=== PATIENT | female | born 1945 | race Caucasian/White ===

== ENCOUNTER 2021-05-28 17:11 | Emergency (ER) | payer MEDICARE, SELFPAY ==
[2021-05-28 17:13] VITALS: BP 141/77; PULSE 74; RESP 14; TEMP 36.6; O2SAT 95; BMI 27.0
--- NOTE | 2021-05-28 17:20 | CT_ITS ---
STUDY: CT CERVICAL SPINE WITHOUT CONTRAST REASON FOR EXAM: Female, 76 years old. Trauma fall, hit head and laceration to right face RADIATION DOSAGE (If Supplied By Facility): CTDIvol = ( 18.26 ) mGy, DLP = ( 459.52 ) mGycm TECHNIQUE: High resolution transaxial imaging was performed without contrast material. Sagittal and coronal images were reconstructed. Individualized dose optimization techniques were used for this CT. COMPARISON: None FINDINGS: Craniocervical junction and cervical spine are intact and aligned. Mineralization is normal. Paraspinous soft tissues are normal. Spinal canal is patent at all levels. Neural foramina are patent. CT/Spine Cervical without Contras IMPRESSION: 1. No acute osseous injury. Electronically Signed: Jade Truong MD at 18:06 EDT Tel , Service support ,
--- NOTE | 2021-05-28 17:20 | CT_ITS ---
STUDY: CT BRAIN WITHOUT CONTRAST REASON FOR EXAM: Female, 76 years old. Trauma fall laceration RADIATION DOSAGE (If Supplied By Facility): CTDIvol = ( 44.99 ) mGy, DLP = ( 812.98 ) mGycm TECHNIQUE: Transaxial CT imaging of the brain was performed without administration of intravenous contrast material. Individualized dose optimization techniques were used for this CT. COMPARISON: No relevant priors. FINDINGS: Brain parenchyma is without focal lesions, mass effect, acute intracranial hemorrhage, extra parenchymal fluid collections, hydrocephalus or herniation. The skull is intact. CT/Brain/Head without Contrast IMPRESSION: 1. Normal CT brain. Electronically Signed: Jade Truong MD at 18:00 EDT Tel , Service support ,
--- NOTE | 2021-05-28 17:22 | EDS_ITS ---
HPI History of Present Illness Chief Complaint: Fall Detail of Chief Complaint: Fall with a head injury Informant: patient Narrative Narrative: Patient presents to the emergency department after sustaining a fall this afternoon. Patient presents via EMS. Patient has history of Parkinson's and hypertension. Patient's states that she tripped over the concrete riser at their home and fell and struck her head on the ground. No loss of consciousness. She also complains of some pain in her low back from a fall 2 days ago. Patient not on blood thinners. She denies pain radiating down the legs. She denies recent illness. Patient states that she had 2 small glasses of wine today. [facility] Medical History (Updated 05/28/21 @ 18:[address] Steffany Beauchamp, ) Hypertension Parkinson's disease Allergy/AdvReac Type Severity Reaction Status Date / Time No Known Allergies Allergy Verified 05/28/21 17:12 Social History Smoking Status: Never smoker ROS ROS ED Constitutional Constitutional ED: Reports systems reviewed and no addt'l complaints, except as documented; Denies body ache(s), change in weight or chills Eyes Eyes: Denies acute decrease in peripheral vision, change in vision, double vision or loss of vision ENT ENT ED: Reports none and other Details: Right scalp laceration ; Denies ear pain, lip swelling, loss taste/smell, neck pain, otalgia or sore throat Cardiovascular Cardiovascular: Reports none; Denies abdominal pain, chest pain with activity, leg edema, lightheadedness, palpitations, rapid heart rate or syncope Respiratory/Chest Respiratory/Chest: Reports none; Denies change in mental status, dry cough, dyspnea, hemoptysis, shortness of breath at rest or shortness of breath with exertion Gastrointestinal Gastrointestinal: Reports none; Denies abdominal pain, change in stool character, diarrhea, hematemesis, hematochezia, melena, rectal bleeding or vomiting Genitourinary Genitourinary ED: Reports none; Denies abdominal discomfort, anuria, dysuria, genital pain or polyuria Musculoskeletal Musculoskeletal: Reports none and back pain; Denies arthralgias, difficulty walking, extremity pain, muscle weakness or myalgias Integumentary Reports none; Denies abscess or rash Neurologic Neurologic: Reports none and headache(s); Denies abnormal gait, confusion, focal weakness, frequent falls, loss of vision, numbness, paresthesias, radicular pain, vertigo or weakness Psychiatric Psychiatric: Reports systems reviewed and no addt'l complaints, except as documented and none; Denies behavioral changes, confusion, difficulty concentrating, hallucinations, suicidal ideation, tactile hallucinations or visual hallucinations Endocrine Endocrinology: Denies none, cold intolerance, excessive sweating, fatigue or heat intolerance Hematologic/Lymphatic Hematologic/Lymphatic: Reports none; Denies anemia, easy bleeding or easy bruising Allergic/Immunologic Allergic/Immunologic ED: Denies as per HPI, none, lip swelling, mouth swelling, throat swelling, tongue swelling or hives EXAM Physical Exam Const Vital Signs: 05/28/21 17:13 05/28/21 17:15 Temperature 97.8 F Temperature Source Temporal Pulse Rate 74 Respiratory Rate 14 Respiratory Effort Normal Non-Labored Blood Pressure 141/77 H Blood Pressure Mean 98 Pulse Ox 95 Oxygen Delivery Method Room Air Room Air Positive well nourished and well developed General Appearance ED: well developed and NAD HEENT Reports TM's clear and moist mucous membranes HEENT Narrative: Patient has a laceration to the right parietal scalp normocephalic and atraumatic; Negative for trauma or tenderness Tympanic Membrane ED: Yes TM's clear Eyes PERRL and EOMs intact bilaterally General Eye ED: Negative for pale conjunctiva or scleral icterus Neck no lymphadenopathy, supple and no JVD Neck Narrative: Mild diffuse tenderness over the C-spine. No bony step-offs. General: tenderness Chest Wall inspection of chest normal and palpation of chest normal Chest: Negative for tenderness Resp normal respiratory effort and clear to auscultation bilaterally Effort and Inspection: Negative for respiratory distress or pain with movement Auscultation: Negative for rhonchi, wheezes or diminished lung sounds Cardio regular rate, regular rhythm, S1 normal heart sound, S2 normal heart sound and no murmurs Peripheral Pulses: pulses 2+ throughout GI normal to inspection, nondistended, normoactive bowel sounds, soft to palpation, non-tender, non-distended and no masses Back/Spine no CVA tenderness and no thoracic nor lumbar tenderness Extremity normal to inspection General Extremety ED: Negative for edema General Extremity: Negative for edema Neuro oriented x3, CN's II-XII intact bilaterally, no sensory deficits noted and gait normal Sensorium / Orientation: awake, alert, oriented to person, oriented to place and oriented to time Motor Exam: strength 5/5 throughout and strength abnormal Psych mental status grossly normal Skin no rashes or lesions noted and no wounds PROC Procedures Lacerations Scalp laceration: Length: 1.18 in Depth: Sub Q Shape: Linear Prep: Sterile Conditions Laceration repair: Irrigated, Lidocaine with epi and Local Irrigated (ml): 50 Number of Sutures/[place]: 3 Suture Information: Ethilon and Simple MDM MDM MDM Narrative Medical decision making narrative: CT scan of brain and C-spine obtained were unremarkable. X-ray of the lumbar spine were unremarkable. Patient had her scalp laceration repaired in department. She is advised to follow-up with primary care physician in 10 days for suture removal. She is to return if worsening pain, redness, swelling, purulent drainage, or condition worsen anyway. Radiography Diagnostic Testing: Clinical Impression(s) from Imaging Studies Brain CT 05/28/21 17:20 IMPRESSION: 1. Normal CT brain. Electronically Signed: Jade Truong MD at 18:00 EDT Tel , Service support , Cervical Spine CT 05/28/21 17:20 IMPRESSION: 1. No acute osseous injury. Electronically Signed: Jade Truong MD at 18:06 EDT Tel , Service support , Lumbar Spine X-Ray 05/28/21 17:35 IMPRESSION: Normal x-ray examination of the lumbar spine. Electronically Signed: Derrick Bautista DO at 17:51 EDT Tel [phone], Service support , Three-view x-rays of lumbar spine obtained interpreted by myself as no acute fractures. Radiology in agreement. Discharge Plan Triage Chief Complaint: Fall ED Provider: Steffany Beauchamp Dx/Rx/DC Orders Clinical Impression: Fall, CHI (closed head injury), Laceration of scalp, Lumbar strain Instructions: ED Back Sprain/Strain, ED Mechanical Fall, ED Head Injury (Adult), ED Laceration Scalp Stitches or [place] Primary Care Provider: Care Physician,No Primary Referrals: Care Physician,No Primary [Primary Care Provider] - Activity Restrictions/Additional Instructions: See your family doctor in 10 days for suture removal Disposition Disposition: Home, Self Care
--- NOTE | 2021-05-28 17:35 | RAD_ITS ---
STUDY: X-RAY - LUMBAR SPINE REASON FOR EXAM: Female, 76 years old. Fall TECHNIQUE: 2 view(s) of the lumbar spine were obtained. COMPARISON: None FINDINGS: Normal lumbar lordosis. There is no substantial scoliosis. There is a normal alignment of the vertebrae. Normal vertebral bodies and endplates. Normal disc space heights. The soft tissue structures are unremarkable. RAD/Lumbar Spine 2 or 3 Views IMPRESSION: Normal x-ray examination of the lumbar spine. Electronically Signed: Derrick Bautista DO at 17:51 EDT Tel [phone], Service support ,
[2021-05-28] MEDS: Lidocaine 1% /Epi 1:100 (20ml) 20 ML Vial 8 ML INFILT (18:20)
[2021-05-28 18:51] VITALS: BP 141/71; PULSE 67; RESP 14; O2SAT 96
[2021-05-28] MEDS: Diphth,Pertuss(Acell),Tet Vac 0.5 ML Vial IM (18:52)
== END 2021-05-28 19:02 | disposition home or self-care (01) ==
PROVIDERS: Emergency Provider Emergency Medicine
DX: S01.01XA Laceration without foreign body of scalp, initial encounter (principal); S39.012A Strain of muscle, fascia and tendon of lower back, initial encounter; I10 Essential (primary) hypertension; G20 Parkinson's disease; W01.0XXA Fall on same level from slipping, tripping and stumbling without subsequent striking against object, initial encounter; Y93.01 Activity, walking, marching and hiking; Y92.008 Other place in unspecified non-institutional (private) residence as the place of occurrence of the external cause; Y99.8 Other external cause status
CPT/HCPCS: 12002; 70450; 72100; 72125; 90471; 90715; 99284

== ENCOUNTER → 2024-06-06 | Outpatient (CLI) | payer MEDICARE, SELFPAY ==
--- NOTE | 2024-06-06 10:57 | RAD_ITS ---
INDICATION: contusion EXAMINATION/TECHNIQUE: X-RAY - XR Chest 2 Views COMPARISON: No relevant prior comparison study available FINDINGS: LINES/DEVICES: None. LUNGS: No consolidation, edema or effusion. No pneumothorax. MEDIASTINUM AND CARDIOVASCULAR STRUCTURES: The cardiac silhouette is within normal limits. Atherosclerotic calcifications and tortuosity of the thoracic aorta. BONES AND SOFT TISSUES: Severe compression fracture of mid thoracic vertebra probably chronic. RAD/Chest PA and Lateral IMPRESSION: No radiographic evidence of acute cardiopulmonary disease. Electronically Signed: Deuce Chery MD at 11:23 EDT ,
== END | disposition home or self-care (01) ==
PROVIDERS: Referring Provider Physician Assistant Surgical; Visit Provider Physician Assistant Surgical
DX: S20.211A Contusion of right front wall of thorax, initial encounter (principal)
CPT/HCPCS: 71046